=== PATIENT | female | born 1995 | race Caucasian/White ===

== ENCOUNTER 2018-02-04 09:14 | Emergency (ER) | payer OTHER | END 2018-02-04 09:47 | disposition home or self-care (01) | LOC: M ED 09:14 | DX: O99.513 Diseases of the respiratory system complicating pregnancy, third trimester (principal); J20.9 Acute bronchitis, unspecified; J32.9 Chronic sinusitis, unspecified; O99.413 Diseases of the circulatory system complicating pregnancy, third trimester; R01.1 Cardiac murmur, unspecified; Z88.7 Allergy status to serum and vaccine; Z3A.32 32 weeks gestation of pregnancy | CPT/HCPCS: 99282 ==

== ENCOUNTER 2018-02-24 19:36 | Outpatient (CLI) | payer OTHER | END 2018-02-24 21:15 | disposition home or self-care (01) | LOC: M LDO 19:36 | DX: O26.893 Other specified pregnancy related conditions, third trimester (principal); Z3A.35 35 weeks gestation of pregnancy; R51 Headache | CPT/HCPCS: 59025 ==

== ENCOUNTER 2018-02-26 13:58 | Outpatient (CLI) | payer OTHER ==
[2018-02-26 14:42] LABS: HEMATOCRIT 35.6 % (36.0-47.0); MEAN CORPUSCULAR HEMOGLOBIN 29.4 pg (27.0-33.0); MEAN CORPUSCULAR HGB CONC 33.7 g/dl (32.0-36.5); MEAN CORPUSCULAR VOLUME 87.3 fl (80.0-96.0); PLATELET COUNT, AUTOMATED 248 10^3/uL (150-450); RED BLOOD COUNT 4.08 10^6/uL (4.00-5.40); RED CELL DISTRIBUTION WIDTH 13.6 % (11.5-14.5); WHITE BLOOD COUNT 13.6 10^3/uL (4.0-10.0)
[2018-02-26 15:09] LABS: ALT/SGPT 16 U/L (12-78); AST/SGOT 14 U/L (7-37); BILIRUBIN,TOTAL 0.2 MG/DL (0.2-1.0); CREATININE FOR GFR 0.66 MG/DL (0.55-1.30); GLOMERULAR FILTRATION RATE > 60.0 (>60); LDH LACTATE DEHYDROGENASE 137 U/L (84-246); URIC ACID 4.8 MG/DL (2.6-6.0)
[2018-02-26 15:10] LABS: TOTAL PROTEIN,RANDOM URINE 10.6 MG/DL (0.0-12.0)
[2018-02-26 15:10] LABS: CREATININE,RANDOM URINE 46.4 MG/DL
== END 2018-02-26 16:41 | disposition home or self-care (01) ==
LOC: M LDO 13:58
DX: O13.3 Gestational [pregnancy-induced] hypertension without significant proteinuria, third trimester (principal); Z3A.35 35 weeks gestation of pregnancy
CPT/HCPCS: 59025

== ENCOUNTER 2018-02-28 15:53 | Outpatient (CLI) | payer OTHER ==
[2018-02-28 16:48] LABS: HEMATOCRIT 36.7 % (36.0-47.0); HEMOGLOBIN 12.3 g/dl (12.0-15.5); MEAN CORPUSCULAR HEMOGLOBIN 29.7 pg (27.0-33.0); MEAN CORPUSCULAR HGB CONC 33.5 g/dl (32.0-36.5); MEAN CORPUSCULAR VOLUME 88.6 fl (80.0-96.0); PLATELET COUNT, AUTOMATED 241 10^3/uL (150-450); RED BLOOD COUNT 4.14 10^6/uL (4.00-5.40); RED CELL DISTRIBUTION WIDTH 13.6 % (11.5-14.5); WHITE BLOOD COUNT 13.5 10^3/uL (4.0-10.0)
[2018-02-28 17:14] LABS: ALT/SGPT 15 U/L (12-78); AST/SGOT 18 U/L (7-37); BILIRUBIN,TOTAL 0.2 MG/DL (0.2-1.0); CREATININE FOR GFR 0.89 MG/DL (0.55-1.30); GLOMERULAR FILTRATION RATE > 60.0 (>60); LDH LACTATE DEHYDROGENASE 167 U/L (84-246); URIC ACID 5.2 MG/DL (2.6-6.0)
[2018-02-28 17:27] LABS: CREATININE,RANDOM URINE 21.1 MG/DL
[2018-02-28 17:27] LABS: TOTAL PROTEIN,RANDOM URINE 9.2 MG/DL (0.0-12.0)
== END 2018-02-28 18:10 | disposition home or self-care (01) ==
LOC: M LDO 15:53
DX: O13.3 Gestational [pregnancy-induced] hypertension without significant proteinuria, third trimester (principal); Z3A.35 35 weeks gestation of pregnancy; O36.8130 Decreased fetal movements, third trimester, not applicable or unspecified
CPT/HCPCS: 76815

== ENCOUNTER → 2018-03-01 | Outpatient (REF) | payer OTHER ==
[2018-03-01 20:56] LABS: URINE TOTAL PROTEIN 11.7 MG/DL (0-12)
[2018-03-01 21:02] LABS: TOTAL PROTEIN 24 HOUR URINE 239.8 MG/24HR (50-150); TOTAL VOLUME, URINE 2050 ML
== END ==
LOC: M LAB REF 19:57
DX: Z34.82 Encounter for supervision of other normal pregnancy, second trimester (principal)

== ENCOUNTER 2018-03-08 14:25 | Inpatient (IN) | payer OTHER ==
[2018-03-08 15:39] LABS: HEMATOCRIT 35.9 % (36.0-47.0); HEMOGLOBIN 11.8 g/dl (12.0-15.5); MEAN CORPUSCULAR HEMOGLOBIN 29.3 pg (27.0-33.0); MEAN CORPUSCULAR HGB CONC 32.9 g/dl (32.0-36.5); MEAN CORPUSCULAR VOLUME 89.1 fl (80.0-96.0); PLATELET COUNT, AUTOMATED 240 10^3/uL (150-450); RED BLOOD COUNT 4.03 10^6/uL (4.00-5.40); RED CELL DISTRIBUTION WIDTH 13.9 % (11.5-14.5); WHITE BLOOD COUNT 10.4 10^3/uL (4.0-10.0)
[2018-03-08 16:10] LABS: ALT/SGPT 15 U/L (12-78); AST/SGOT 17 U/L (7-37); BILIRUBIN,TOTAL 0.2 MG/DL (0.2-1.0); CREATININE FOR GFR 0.68 MG/DL (0.55-1.30); GLOMERULAR FILTRATION RATE > 60.0 (>60); LDH LACTATE DEHYDROGENASE 174 U/L (84-246)
[2018-03-08] MEDS: miSOPROStol 50 MCG 1/2 TAB (S0191) PO (16:16)
[2018-03-08] MEDS: LR 1,000 ML IV (20:46)
[2018-03-08] MEDS: LACTATED RINGER'S 1000 ML IV (23:06)
[2018-03-08] MEDS ORDERED: FENTANYL 2MCG/ML ROPIVACAINE 0.2% IN 0.9% NACL 200ML IVBAG As Ordered (23:44)
[2018-03-09] MEDS ORDERED: ONDANSETRON 4MG/2ML VIAL (J2405) IV ×2 (01:00→22:00)
[2018-03-09] MEDS ORDERED: FENTANYL/ROPIVACAINE/NACL BAG 200 ML EPIDURAL (01:00)
[2018-03-09] MEDS ORDERED: diphenhydrAMINE INJ 50MG/ML VIAL (J1200) IV (01:00)
[2018-03-09] MEDS ORDERED: EPIDURAL/PCA KEYS XX (01:00)
[2018-03-09] MEDS ORDERED: REFRIGERATOR IV KEYS XX (01:00)
[2018-03-09] MEDS ORDERED: LACTATED RINGER'S 1000 ML IV (01:00)
[2018-03-09] MEDS ORDERED: NALOXONE INJ 0.4 MG/1 ML VIAL (J2310) IV (01:00)
[2018-03-09] MEDS ORDERED: EPIDURAL COMMENT XX (01:00)
[2018-03-09] MEDS: ePHEDrine SULFATE 25 MG/5 ML(5MG/ML) SYRINGE IV ×4 (02:13→12:51)
[2018-03-09 07:33] LABS: ALT/SGPT 11 U/L (12-78); AST/SGOT 13 U/L (7-37); BILIRUBIN,TOTAL 0.2 MG/DL (0.2-1.0); CREATININE FOR GFR 0.68 MG/DL (0.55-1.30); GLOMERULAR FILTRATION RATE > 60.0 (>60); LDH LACTATE DEHYDROGENASE 134 U/L (84-246); URIC ACID 4.9 MG/DL (2.6-6.0)
[2018-03-09] MEDS: OXYTOCIN DRIP 30 UNITS in APPROPRIATE DILUENT 1 EA IV ×3 (08:43→21:35)
[2018-03-09] MEDS: LR 1,000 ML IV ×2 (08:44→16:00)
[2018-03-09] MEDS: BICITRA 30ML SOLN UDC PO (20:10)
[2018-03-09] MEDS ORDERED: OXYTOCIN INJ 10 UNITS/ML VIAL (J2590) As Ordered ×3 (20:21)
[2018-03-09] MEDS ORDERED: fentaNYL 100 MCG/2 ML INJECTION (J3010) As Ordered ×3 (20:34→21:07)
[2018-03-09] MEDS ORDERED: LIDOCAINE PRES-FREE 2% 10ML AMP As Ordered ×2 (20:34→20:52)
[2018-03-09] MEDS ORDERED: ONDANSETRON 4MG/2ML VIAL (J2405) As Ordered (20:34)
[2018-03-09] MEDS ORDERED: MORPHINE PRES-FREE INJ 10 MG/10 ML VIAL (J2274) As Ordered (20:44)
[2018-03-09] MEDS ORDERED: KETOROLAC 60 MG/2 ML VIAL (J1885) As Ordered (21:28)
[2018-03-09] MEDS: DOCUSATE SODIUM 100 MG CAP PO (21:40)
[2018-03-09] MEDS ORDERED: RHOGAM 300 MCG (1500 IU) INJ (J2790) IM (21:45)
[2018-03-09] MEDS ORDERED: MEASLES,MUMPS,RUBELLA VACCINE INJ (MMR-II) (90707) SC (21:45)
[2018-03-09] MEDS ORDERED: METOCLOPRAMIDE INJ 10MG/2ML VIAL (J2765) IV (21:45)
[2018-03-09] MEDS ORDERED: PERCOCET 5MG/325MG TAB PO (22:00)
[2018-03-09] MEDS ORDERED: NALBUPHINE HCL 10 MG/ML AMP (J2300) IV (22:00)
[2018-03-09] MEDS ORDERED: fentaNYL 100 MCG/2 ML INJECTION (J3010) IV (22:00)
[2018-03-10] MEDS: PERCOCET 5MG/325MG TAB PO ×5 (00:04→23:33)
[2018-03-10] MEDS: KETOROLAC 30 MG/ML VIAL (J1885) IV ×3 (04:48→15:44)
[2018-03-10 06:48] LABS: HEMATOCRIT 28.8 % (36.0-47.0); HEMOGLOBIN 9.6 g/dl (12.0-15.5); MEAN CORPUSCULAR HEMOGLOBIN 29.4 pg (27.0-33.0); MEAN CORPUSCULAR HGB CONC 33.3 g/dl (32.0-36.5); MEAN CORPUSCULAR VOLUME 88.3 fl (80.0-96.0); PLATELET COUNT, AUTOMATED 170 10^3/uL (150-450); RED BLOOD COUNT 3.26 10^6/uL (4.00-5.40); RED CELL DISTRIBUTION WIDTH 13.6 % (11.5-14.5); WHITE BLOOD COUNT 15.7 10^3/uL (4.0-10.0)
[2018-03-10] MEDS ORDERED: ADACEL/BOOSTRIX VACCINE (DIPHTH/PERTUSS/ACELL/TETANUS)0.5ML SYR (90715) IM (09:00)
[2018-03-10] MEDS: PRENATAL VITAMINS CHEWABLE TABLET PO (09:21)
[2018-03-10] MEDS: DOCUSATE SODIUM 100 MG CAP PO ×2 (09:21→19:47)
[2018-03-10 19:44] LABS: HEMOGLOBIN 9.6 g/dl (12.0-15.5); MEAN CORPUSCULAR HGB CONC 33.1 g/dl (32.0-36.5); MEAN CORPUSCULAR VOLUME 90.6 fl (80.0-96.0); PLATELET COUNT, AUTOMATED 174 10^3/uL (150-450); RED CELL DISTRIBUTION WIDTH 13.9 % (11.5-14.5); WHITE BLOOD COUNT 13.8 10^3/uL (4.0-10.0)
[2018-03-10] MEDS: IBUPROFEN 800 MG TAB PO (23:32)
[2018-03-11] MEDS: PERCOCET 5MG/325MG TAB PO ×3 (03:45→13:15)
[2018-03-11] MEDS: IBUPROFEN 800 MG TAB PO ×2 (07:48→15:50)
[2018-03-11] MEDS: DOCUSATE SODIUM 100 MG CAP PO (07:48)
[2018-03-11] MEDS: PRENATAL VITAMINS CHEWABLE TABLET PO (07:49)
[2018-03-11] MEDS: ADACEL/BOOSTRIX VACCINE (DIPHTH/PERTUSS/ACELL/TETANUS)0.5ML SYR (90715) IM (09:09)
== END 2018-03-11 16:00 | disposition home or self-care (01) | DRG 766 ==
LOC: M LDI 14:25 → M OBS 03-09 22:00
PROC: 10D00Z1 Extraction of Products of Conception, Low, Open Approach (ICD-10-PCS; principal; 2018-03-09 20:21)
PROC: 3E0DXGC Introduction of Other Therapeutic Substance into Mouth and Pharynx, External Approach (ICD-10-PCS; 2018-03-09 20:21)
PROC: 3E033VJ Introduction of Other Hormone into Peripheral Vein, Percutaneous Approach (ICD-10-PCS; 2018-03-09 20:21)
PROC: 10907ZC Drainage of Amniotic Fluid, Therapeutic from Products of Conception, Via Natural or Artificial Opening (ICD-10-PCS; 2018-03-09 20:21)
DX: O13.3 Gestational [pregnancy-induced] hypertension without significant proteinuria, third trimester (principal); Z37.0 Single live birth; Z3A.37 37 weeks gestation of pregnancy; O61.0 Failed medical induction of labor

== ENCOUNTER → 2019-03-17 | Outpatient (CLI) | payer OTHER ==
[~2019-03-17] MED LIST: ACET500T15 PO; COLA100C5 PO; IBUP-1114 PO; MAPA500T2 PO; OXYC1TAB23 PO; PREN1TAB26 PO; ZITHTAB PO
[2019-03-17 14:59] LABS: BASO # 0.1 10^3/uL (0.0-0.2); BASO % 0.4 % (0.0-1.0); EOS # 0.2 10^3/uL (0.0-0.5); EOS % 1.3 % (0.0-3.0); HEMATOCRIT 39.7 % (36.0-47.0); HEMOGLOBIN 13.2 g/dl (12.0-15.5); LYMPH # 2.4 10^3/uL (1.5-5.0); LYMPH % 19.2 % (24.0-44.0); MEAN CORPUSCULAR HEMOGLOBIN 29.8 pg (27.0-33.0); MEAN CORPUSCULAR HGB CONC 33.2 g/dl (32.0-36.5); MEAN CORPUSCULAR VOLUME 89.6 fl (80.0-96.0); MONO # 0.8 10^3/uL (0.0-0.8); NEUTROPHILS # 9.2 10^3/uL (1.5-8.5); NEUTROPHILS % 72.8 % (36.0-66.0); PLATELET COUNT, AUTOMATED 328 10^3/uL (150-450); RED BLOOD COUNT 4.43 10^6/uL (4.00-5.40); WHITE BLOOD COUNT 12.6 10^3/uL (4.0-10.0)
[2019-03-17 15:31] LABS: ALT/SGPT 16 U/L (12-78); BILIRUBIN,TOTAL 0.4 MG/DL (0.2-1.0); CREATININE FOR GFR 0.64 MG/DL (0.55-1.30); GLOMERULAR FILTRATION RATE > 60.0 (>60); LDH LACTATE DEHYDROGENASE 137 U/L (84-246)
[2019-03-17 16:47] LABS: CHLAMYDIA DNA AMPLIFICATION NEGATIVE (NEGATIVE); GC DNA AMPLIFICATION NEGATIVE (NEGATIVE)
[2019-03-18 09:50] LABS: RUBELLA IgG QUALITATIVE IMMUNE (IMMUNE)
[2019-03-18 10:18] LABS: HEPATITIS C VIRUS ABY INDEX 0.1 INDEX (<0.8)
[2019-03-18 10:19] LABS: HIV 1&2 SCREEN CENTAUR NEGATIVE (NEGATIVE)
== END ==
LOC: M LAB 13:19
PROVIDERS: ATTEND Advanced Practice Midwife
DX: O09.293 Supervision of pregnancy with other poor reproductive or obstetric history, third trimester (principal); Z3A.00 Weeks of gestation of pregnancy not specified

== ENCOUNTER → 2019-04-02 | Outpatient (CLI) | payer OTHER ==
[2019-04-04 00:09] LABS: ANTI PARVO VIRUS LEVEL IGG 4.1 index (0.0-0.8); ANTI PARVO VIRUS LEVEL IgM 0.2 index (0.0-0.8)
== END ==
LOC: M LAB 10:25
PROVIDERS: ATTEND Advanced Practice Midwife
DX: O34.219 Maternal care for unspecified type scar from previous cesarean delivery (principal); Z3A.00 Weeks of gestation of pregnancy not specified

== ENCOUNTER → 2019-05-18 | Outpatient (CLI) | payer OTHER ==
--- NOTE | 2019-05-18 14:19 | REP ---
Clinical: Anatomical evaluation. Comparison: None . Findings: Examination demonstrates a single live intrauterine in cephalic presentation. motion is identified by technologist. Placenta is noted anterior and grade zero without evidence for placenta previa or abruption. Amniotic fluid volume is normal. Cervix measures 3.7 cm in length and appears closed. No evidence for nuchal cord. Gestational age by LMP 18 weeks 4 days with ALMA 10/15/2019 . Gestational age by current measurements 18 weeks 6 days with ALMA 10/13/2019 . FHR equals 142 beats per minute. BPD 4.4 cm 19 weeks 2 days HC 16.0 cm 18 weeks 6 days AC 13.1 cm 18 weeks 4 days FL 2.8 cm 18 weeks 4 days HL 2.8 cm 10 weeks 6 days HC/AC ratio 1.22 Estimated weight 248 grams ( 47th percentile). Anatomical assessment demonstrates normal structures including cranium, choroid plexus, cavum, cerebellum/posterior fossa, lungs, four-chamber heart, diaphragm, stomach, cord insertion/three-vessel cord, kidneys/bladder, spine, and extremities. Impression: 1. Single live intrauterine in cephalic presentation demonstrating appropriate interval growth. 2. Limited evaluation of the facial features and cardiac ventricular outflow tracts noted. Remainder of the anatomical assessment is complete and normal. Electronically Signed by Rupesh Patel MD 05/18/2019 02:10 P
== END ==
LOC: M RAD 13:24
PROVIDERS: ATTEND Advanced Practice Midwife
DX: Z34.92 Encounter for supervision of normal pregnancy, unspecified, second trimester (principal); Z3A.18 18 weeks gestation of pregnancy

== ENCOUNTER → 2019-06-25 | Outpatient (CLI) | payer OTHER ==
--- NOTE | 2019-06-26 04:12 | REP ---
Clinical: Anatomical evaluation. Comparison: 05/18/2019 . Findings: Examination demonstrates a single live intrauterine in cephalic presentation. motion is identified by technologist. Placenta is noted anterior and grade I without evidence for placenta previa or abruption. Amniotic fluid volume is normal. Cervix measures 3.8 cm in length and appears closed. Nuchal cord cannot be excluded Gestational age by LMP 24 weeks 0 days with ALMA see 10/15/2019 . Gestational age by current measurements 25 weeks 0 days with ALMA 10/08/2019 . FHR equals 139 beats per minute. Estimated weight 757 grams ( 74th percentile). Anatomical assessment demonstrates normal structures including cranium, choroid plexus, cavum, cerebellum/posterior fossa, facial features, lungs, four-chamber heart/ventricular outflow tracts, diaphragm, stomach, cord insertion/three-vessel cord, kidneys/bladder, and extremities. Impression: Single live intrauterine in cephalic presentation demonstrating appropriate interval growth. 2. Nuchal cord cannot be excluded. 3. In conjunction with prior examination anatomical assessment is complete and normal. Electronically Signed by Rupesh Patel MD 06/26/2019 04:03 A
== END ==
LOC: M RAD 10:56
PROVIDERS: ATTEND Advanced Practice Midwife
DX: Z34.92 Encounter for supervision of normal pregnancy, unspecified, second trimester (principal)

== ENCOUNTER → 2019-06-26 | Outpatient (CLI) | payer OTHER ==
[2019-06-26 15:00] LABS: HEMATOCRIT 37.3 % (36.0-47.0); HEMOGLOBIN 12.1 g/dl (12.0-15.5); MEAN CORPUSCULAR HEMOGLOBIN 28.9 pg (27.0-33.0); MEAN CORPUSCULAR HGB CONC 32.4 g/dl (32.0-36.5); PLATELET COUNT, AUTOMATED 285 10^3/uL (150-450); RED BLOOD COUNT 4.19 10^6/uL (4.00-5.40); WHITE BLOOD COUNT 14.2 10^3/uL (4.0-10.0)
== END ==
LOC: M LAB 12:49
PROVIDERS: ATTEND Advanced Practice Midwife
DX: Z34.92 Encounter for supervision of normal pregnancy, unspecified, second trimester (principal); Z3A.00 Weeks of gestation of pregnancy not specified

== ENCOUNTER 2019-08-02 20:07 | Outpatient (CLI) | payer OTHER ==
[~2019-08-02] VITALS: Ht 160 cm; Wt 90.4 kg
[2019-08-02 20:31] VITALS: BP 137/75
[2019-08-02 23:22] LABS: CHLAMYDIA DNA AMPLIFICATION NEGATIVE (NEGATIVE); GC DNA AMPLIFICATION NEGATIVE (NEGATIVE)
== END 2019-08-02 21:40 | disposition home or self-care (01) ==
LOC: M LDO 20:07
PROVIDERS: ATTEND Obstetrics & Gynecology
DX: O26.893 Other specified pregnancy related conditions, third trimester (principal); N89.8 Other specified noninflammatory disorders of vagina; Z3A.29 29 weeks gestation of pregnancy
CPT/HCPCS: 59025; 87491; 87591; G0463

== ENCOUNTER 2019-08-11 16:43 | Emergency (ER) | payer OTHER ==
[2019-08-11 17:02] VITALS: BP 139/91
== END 2019-08-11 18:24 | disposition home or self-care (01) ==
LOC: M ED 16:43
DX: O99.513 Diseases of the respiratory system complicating pregnancy, third trimester (principal); J06.9 Acute upper respiratory infection, unspecified; Z3A.31 31 weeks gestation of pregnancy; Z88.7 Allergy status to serum and vaccine; Z91.018 Allergy to other foods
CPT/HCPCS: 87486; 87581; 87633; 87798; 99283; U0002

== ENCOUNTER → 2019-09-18 | Outpatient (REF) | payer OTHER | LOC: M SFHCWAGY 16:32 | PROVIDERS: ATTEND Obstetrics & Gynecology | DX: Z3A.36 36 weeks gestation of pregnancy (principal) ==

== ENCOUNTER 2020-03-08 09:10 | Emergency (ER) | payer OTHER ==
[~2020-03-08] VITALS: Ht 160 cm; Wt 85.8 kg
[~2020-03-08 09:10] MED LIST changes: +ASPI81TA86 PO; +IBUP-1022 PO
[2020-03-08 10:12] LABS: BASO % 0.3 % (0.0-1.0); EOS # 0.1 10^3/uL (0.0-0.5); EOS % 0.8 % (0.0-3.0); HEMATOCRIT 41.6 % (36.0-47.0); HEMOGLOBIN 13.2 g/dl (12.0-15.5); LYMPH % 15.4 % (24.0-44.0); MEAN CORPUSCULAR HGB CONC 31.7 g/dl (32.0-36.5); MEAN CORPUSCULAR VOLUME 85.1 fl (80.0-96.0); MONO # 0.7 10^3/uL (0.0-0.8); MONO % 5.2 % (0.0-5.0); NEUTROPHILS # 10.2 10^3/uL (1.5-8.5); PLATELET COUNT, AUTOMATED 325 10^3/uL (150-450); RED BLOOD COUNT 4.89 10^6/uL (4.00-5.40)
[2020-03-08 10:58] LABS: ALBUMIN 3.4 GM/DL (3.2-5.2); ALT/SGPT 17 U/L (12-78); BILIRUBIN,DIRECT < 0.1 MG/DL (0.0-0.2); BILIRUBIN,TOTAL 0.2 MG/DL (0.2-1.0); BLOOD UREA NITROGEN 9 MG/DL (7-18); CALCIUM LEVEL 9.1 MG/DL (8.5-10.1); CARBON DIOXIDE LEVEL 23 MEQ/L (21-32); CHLORIDE LEVEL 106 MEQ/L (98-107); CREATININE FOR GFR 0.66 MG/DL (0.55-1.30); GLOMERULAR FILTRATION RATE > 60.0 (>60); GLUCOSE, FASTING 77 MG/DL (70-100); HCG, SERUM QUANTITATIVE 58014 MIU/ML; LIPASE 112 U/L (73-393); POTASSIUM SERUM 4.9 MEQ/L (3.5-5.1); SODIUM LEVEL 136 MEQ/L (136-145); TOTAL PROTEIN 7.7 GM/DL (6.4-8.2)
--- NOTE | 2020-03-08 11:26 | REPVR ---
PROCEDURE INFORMATION: Exam: US First Trimester, Transabdominal and US , Transvaginal US Duplex Artery or Vein of the Abdominal and/or Reproductive Organs, Limited Ovaries Exam date and time: 03/08/2020 10:55 AM Age: 25 years old Clinical indication: complicated by abdominal or pelvic pain; Left lower quadrant; First trimester; Gestational age or lmp: 9; ; Prior surgery; Surgery date: 1-6 months; Surgery type: Uterine rupture repair; Additional info: Llq pain, 9 weeks preg TECHNIQUE: Imaging protocol: Real-time transabdominal obstetrical ultrasound of the maternal pelvis and a first trimester , less than 14 weeks 0 days, with image documentation. Transvaginal imaging was used for better evaluation of the fetus, adnexa, and/or cervix. Real-time duplex ultrasound scan of the arterial or venous flow with neil scale, color Doppler flow and spectral waveform analysis with image documentation. Limited duplex exam focused on the ovaries. Duplex images required to evaluate for torsion and other vascular conditions. COMPARISON: No relevant prior studies available. FINDINGS: Gestation: Single intrauterine gestational sac. Small yolk sac present. Embryonic/ heart rate: 169 bpm. Placenta: No demonstrated subchorionic hemorrhage. BIOMETRY: Gestational age (AUA): Mean crown-rump length 2.3 cm, corresponding to an estimated gestational age of 9 weeks 0 days. MATERNAL: Uterus: The uterus measures 13.0 cm in length transabdominally. Cervix: Cervix not well visualized transabdominally or transvaginally. Right adnexa: The right ovary measures 6.6 x 6.6 x 5.5 cm. It contains 2 simple cysts, measuring 2.4 x 3.8 x 2.3 cm and 3.6 x 4.8 x 5.3 cm. There is internal arterial and venous flow to the ovary. Peak systolic velocity 16.9 cm/s, end-diastolic velocity 8.1 cm/s, resistive index 0.52. Left adnexa: The left ovary measures 2.8 x 3.0 x 1.5 cm transabdominally and appears unremarkable. There is internal flow. Intraperitoneal space: No intraperitoneal free fluid. IMPRESSION: 1. Single viable intrauterine gestation with estimated gestational age of 9 weeks 0 days. 2. Two simple right renal cysts, larger measuring 5.3 cm. Follow-up ultrasound in 2-6 months is recommended. (Reference: Jimmy, 2019) 3. Normal internal flow to the right ovary without torsion. 4. Unremarkable left ovary. REFERENCES: Jimmy Hernandez, et al. Simple Adnexal Cysts: SRU Consensus Conference Update on Follow-up and Reporting. Radiology. 2019;293(2):[id number]. Electronically signed by: Turner Conteh On 03/08/2020 11:26:19 AM
[2020-03-08 12:36] VITALS: BP 143/82
--- NOTE | 2020-03-08 14:35 | ED PDOC ---
Post-Departure Follow-Up ob us faxed to dr valdez for fu He Aquino MD Mar 08, 2020 14:35
== END 2020-03-08 13:01 | disposition home or self-care (01) ==
LOC: M ED 09:10
DX: O26.899 Other specified pregnancy related conditions, unspecified trimester (principal); R10.32 Left lower quadrant pain; M54.5 Low back pain; O26.831 Pregnancy related renal disease, first trimester; O99.341 Other mental disorders complicating pregnancy, first trimester; Z3A.09 9 weeks gestation of pregnancy; Z88.7 Allergy status to serum and vaccine; Z91.018 Allergy to other foods; Z79.899 Other long term (current) drug therapy

== ENCOUNTER → 2020-03-30 | Outpatient (CLI) | payer OTHER ==
[2020-03-30 16:12] LABS: BASO % 0.3 % (0.0-1.0); EOS # 0.1 10^3/uL (0.0-0.5); HEMATOCRIT 40.9 % (36.0-47.0); LYMPH # 2.4 10^3/uL (1.5-5.0); MEAN CORPUSCULAR HEMOGLOBIN 27.5 pg (27.0-33.0); MEAN CORPUSCULAR HGB CONC 31.8 g/dl (32.0-36.5); MEAN CORPUSCULAR VOLUME 86.7 fl (80.0-96.0); MONO # 0.7 10^3/uL (0.0-0.8); MONO % 6.6 % (0.0-5.0); NEUTROPHILS # 7.7 10^3/uL (1.5-8.5); NEUTROPHILS % 69.7 % (36.0-66.0); PLATELET COUNT, AUTOMATED 324 10^3/uL (150-450); RED BLOOD COUNT 4.72 10^6/uL (4.00-5.40); WHITE BLOOD COUNT 11.1 10^3/uL (4.0-10.0)
[2020-03-31 10:33] LABS: HEPATITIS C VIRUS ABY INDEX 0.1 INDEX (<0.8); HIV 1&2 SCREEN CENTAUR NEGATIVE (NEGATIVE)
== END ==
LOC: M PLALAB 11:55
PROVIDERS: ATTEND Specialist
DX: Z34.81 Encounter for supervision of other normal pregnancy, first trimester (principal)

== ENCOUNTER → 2020-04-01 | Outpatient (CLI) | payer OTHER ==
[2020-04-01 10:52] LABS: BASO % 0.4 % (0.0-1.0); EOS # 0.1 10^3/uL (0.0-0.5); HEMATOCRIT 38.5 % (36.0-47.0); HEMOGLOBIN 11.9 g/dl (12.0-15.5); LYMPH # 2.1 10^3/uL (1.5-5.0); LYMPH % 20.3 % (24.0-44.0); MEAN CORPUSCULAR HEMOGLOBIN 26.7 pg (27.0-33.0); MEAN CORPUSCULAR HGB CONC 30.9 g/dl (32.0-36.5); MEAN CORPUSCULAR VOLUME 86.3 fl (80.0-96.0); MONO # 0.6 10^3/uL (0.0-0.8); MONO % 6.3 % (0.0-5.0); NEUTROPHILS # 7.2 10^3/uL (1.5-8.5); NEUTROPHILS % 71.5 % (36.0-66.0); PLATELET COUNT, AUTOMATED 313 10^3/uL (150-450); RED BLOOD COUNT 4.46 10^6/uL (4.00-5.40); WHITE BLOOD COUNT 10.1 10^3/uL (4.0-10.0)
[2020-04-01 11:16] LABS: ALBUMIN 3.1 GM/DL (3.2-5.2); ALT/SGPT 13 U/L (12-78); BILIRUBIN,TOTAL 0.3 MG/DL (0.2-1.0); BLOOD UREA NITROGEN 8 MG/DL (7-18); CALCIUM LEVEL 8.9 MG/DL (8.5-10.1); CARBON DIOXIDE LEVEL 23 MEQ/L (21-32); CHLORIDE LEVEL 106 MEQ/L (98-107); CREATININE FOR GFR 0.63 MG/DL (0.55-1.30); FERRITIN 23 NG/ML (8-252); GLOMERULAR FILTRATION RATE > 60.0 (>60); GLUCOSE, FASTING 69 MG/DL (70-100); IRON (FE) 62 UG/DL (50-170); PERCENT SATURATION 14.9 % (13.2-45.0); POTASSIUM SERUM 4.2 MEQ/L (3.5-5.1); SODIUM LEVEL 136 MEQ/L (136-145); TOTAL IRON BINDING CAPACITY 417 UG/DL (250-450); TOTAL PROTEIN 7.1 GM/DL (6.4-8.2)
[2020-04-01 11:25] LABS: TOTAL 25(OH) VITAMIN D 18.1 NG/ML (30.0-100.0)
== END ==
LOC: M PLALAB 08:09
PROVIDERS: ATTEND Physician Assistant
DX: D64.9 Anemia, unspecified (principal)

== ENCOUNTER → 2020-06-13 | Outpatient (CLI) | payer OTHER ==
--- NOTE | 2020-06-14 10:10 | REP ---
INDICATION: Follow up Anatomy COMPARISON: None. TECHNIQUE: Transabdominal obstetrical ultrasound with color Doppler evaluation. FINDINGS: Examination demonstrates a single live intrauterine in cephalic presentation. motion is identified by technologist. Placenta is noted posterior and grade 1 without evidence for placenta previa or abruption. Amniotic fluid volume is normal. Cervix measures 3.2 cm in length and appears closed.. Gestational age by LMP 23 weeks 4 days with ALMA 10/06/2020. Gestational age by current measurements 23 weeks 2 days with ALMA 10/08/2020. FHR equals 144 beats per minute. RON: 15.8 cm. Estimated weight 613 grams (43rdpercentile). Anatomical assessment demonstrates 5 mm right choroid plexus cyst and normal appearance to the cerebral ventricles, nose/lips, and spine. IMPRESSION: 1. Single live intrauterine in cephalic presentation demonstrating appropriate interval growth. 2. Small right choroid plexus cyst. 3. In conjunction with prior examination, remainder of the anatomical assessment is complete and normal. <Electronically signed by Rupesh Patel > 06/14/20 1001
== END ==
LOC: M WHC 10:12
PROVIDERS: ATTEND Obstetrics & Gynecology
DX: O34.211 Maternal care for low transverse scar from previous cesarean delivery (principal)

== ENCOUNTER → 2020-07-01 | Outpatient (REF) | payer OTHER ==
[2020-07-01 13:33] LABS: HEMATOCRIT 39.2 % (36.0-47.0); MEAN CORPUSCULAR HEMOGLOBIN 28.1 pg (27.0-33.0); MEAN CORPUSCULAR HGB CONC 30.6 g/dl (32.0-36.5); MEAN CORPUSCULAR VOLUME 91.8 fl (80.0-96.0); PLATELET COUNT, AUTOMATED 254 10^3/uL (150-450); RED BLOOD COUNT 4.27 10^6/uL (4.00-5.40); WHITE BLOOD COUNT 11.2 10^3/uL (4.0-10.0)
== END ==
LOC: M PLALAB 08:36
PROVIDERS: ATTEND Advanced Practice Midwife
DX: O34.211 Maternal care for low transverse scar from previous cesarean delivery (principal)

== ENCOUNTER 2020-09-06 10:29 | Outpatient (CLI) | payer OTHER ==
[~2020-09-06] VITALS: Ht 160 cm; Wt 90.9 kg
[2020-09-06 11:00] VITALS: BP 134/72
[2020-09-06] MEDS ORDERED: LACTATED RINGER'S 1000 ML IV STA (11:01)
[2020-09-06] MEDS ORDERED: LR 1,000 ML IV SCH (11:05)
[2020-09-06 11:45] LABS: BASO % 0.3 % (0.0-1.0); EOS # 0.1 10^3/uL (0.0-0.5); EOS % 0.6 % (0.0-3.0); HEMATOCRIT 38.4 % (36.0-47.0); HEMOGLOBIN 12.5 g/dl (12.0-15.5); LYMPH # 0.9 10^3/uL (1.5-5.0); LYMPH % 8.7 % (24.0-44.0); MEAN CORPUSCULAR HEMOGLOBIN 29.2 pg (27.0-33.0); MEAN CORPUSCULAR HGB CONC 32.6 g/dl (32.0-36.5); MEAN CORPUSCULAR VOLUME 89.7 fl (80.0-96.0); MONO # 0.8 10^3/uL (0.0-0.8); MONO % 6.9 % (2.0-8.0); NEUTROPHILS % 82.9 % (36.0-66.0); PLATELET COUNT, AUTOMATED 232 10^3/uL (150-450); RED BLOOD COUNT 4.28 10^6/uL (4.00-5.40); WHITE BLOOD COUNT 10.9 10^3/uL (4.0-10.0)
[2020-09-06 12:16] LABS: ALBUMIN 2.9 GM/DL (3.2-5.2); ALT/SGPT 10 U/L (12-78); BILIRUBIN,TOTAL 0.5 MG/DL (0.2-1.0); BLOOD UREA NITROGEN 7 MG/DL (7-18); CALCIUM LEVEL 9.2 MG/DL (8.5-10.1); CARBON DIOXIDE LEVEL 22 MEQ/L (21-32); CHLORIDE LEVEL 106 MEQ/L (98-107); CREATININE FOR GFR 0.51 MG/DL (0.55-1.30); GLOMERULAR FILTRATION RATE > 60.0 (>60); GLUCOSE, FASTING 89 MG/DL (70-100); SODIUM LEVEL 136 MEQ/L (136-145); TOTAL PROTEIN 6.8 GM/DL (6.4-8.2)
[2020-09-06 12:29] VITALS: BP 106/62
--- NOTE | 2020-09-06 12:31 | IPNPDOC ---
Obstetrical Progress Note Date of Service Sep 06, 2020 Subjective 25 yo at 35 4/7 weeks presents with nausea, vomiting, and diarrhea since yesterday. She started to feel mild contractions today. She has not been able to keep anything down. She has had two prior sections. Her last was complicated by uterine rupture. Assessment Variability: Moderate Accelerations: Positive Decelerations: None Heart Rate Tracing: Category I Tocometer Contractions: Yes Frequency: irregular, greater than 10 min/apart Assessment and Plan Age: 25 : 3 Term: 2 Pre-term: 0 Abortions: 0 Livin Additional Comments 25 yo at 35 4/7 weeks with viral syndrome, not in labor Give IV fluids check metabolic labs Monitor ZOIE BRAY MD Sep 06, 2020 12:30
== END 2020-09-06 13:47 | disposition home or self-care (01) ==
LOC: M LDO 10:29
PROVIDERS: ATTEND Specialist
DX: O98.513 Other viral diseases complicating pregnancy, third trimester (principal); O21.8 Other vomiting complicating pregnancy; Z3A.35 35 weeks gestation of pregnancy; O26.893 Other specified pregnancy related conditions, third trimester; R19.7 Diarrhea, unspecified; O34.211 Maternal care for low transverse scar from previous cesarean delivery
CPT/HCPCS: 59025; 80053; 85025; 96360; 96361; G0378; G0463

== ENCOUNTER → 2020-09-08 | Outpatient (REF) | payer OTHER ==
[~2020-09-08] MED LIST changes: +FERR325T3 PO; +IBUP80TA PO; +PERCOCET PO; +VITAD400CA PO
== END ==
LOC: M SFHCWAGY 14:51
PROVIDERS: ATTEND Specialist
DX: Z34.83 Encounter for supervision of other normal pregnancy, third trimester (principal); Z3A.00 Weeks of gestation of pregnancy not specified
CPT/HCPCS: 87081; G0463

== ENCOUNTER → 2020-09-09 | Outpatient (CLI) | payer OTHER ==
[~2020-09-09] MED LIST changes: -FERR325T3 PO; -IBUP80TA PO; -PERCOCET PO; -VITAD400CA PO
== END ==
LOC: M LABSMTC 09:34
PROVIDERS: ATTEND Anesthesiology
DX: Z01.812 Encounter for preprocedural laboratory examination (principal); Z20.822 Contact with and (suspected) exposure to COVID-19

== ENCOUNTER 2020-09-14 06:05 | Inpatient (IN) | payer OTHER ==
[~2020-09-14] VITALS: Ht 160 cm; Wt 92.1 kg
[2020-09-14] VITALS (8 sets, daily range): BP systolic 98–129; BP diastolic 51–74
[2020-09-14] MEDS ORDERED: FERR325T3 PO (06:14)
[2020-09-14] MEDS ORDERED: VITAD400CA PO (06:16)
[2020-09-14] MEDS ORDERED: BICITRA 30ML SOLN UDC PO ONE (06:20)
[2020-09-14] MEDS ORDERED: ceFAZolin SOD 2 GM in IV 1 EA IV ONE (06:20)
[2020-09-14] MEDS ORDERED: LR 800 ML IV ONE (06:20)
[2020-09-14] MEDS ORDERED: LR 1,000 ML IV SCH ×2 (06:20→09:25)
[2020-09-14 06:51] LABS: HEMATOCRIT 36.8 % (36.0-47.0); MEAN CORPUSCULAR HEMOGLOBIN 29.1 pg (27.0-33.0); MEAN CORPUSCULAR HGB CONC 32.6 g/dl (32.0-36.5); MEAN CORPUSCULAR VOLUME 89.3 fl (80.0-96.0); PLATELET COUNT, AUTOMATED 240 10^3/uL (150-450); RED BLOOD COUNT 4.12 10^6/uL (4.00-5.40); WHITE BLOOD COUNT 10.4 10^3/uL (4.0-10.0)
[2020-09-14] MEDS ORDERED: OXYTOCIN INJ 10 UNITS/ML VIAL (J2590) As Ordered ONE ×2 (07:20→08:47)
[2020-09-14] MEDS ORDERED: dexameTHASONE 4 MG/ML 1ML VIAL (J1100 PER 1MG) As Ordered ONE (07:20)
[2020-09-14] MEDS ORDERED: ONDANSETRON 4MG/2ML VIAL As Ordered ONE ×2 (07:20→09:38)
[2020-09-14] MEDS ORDERED: fentaNYL 100 MCG/2 ML INJECTION (J3010) As Ordered ONE (07:20)
[2020-09-14] MEDS ORDERED: KETOROLAC 60MG 2ML VIAL As Ordered ONE (07:20)
[2020-09-14] MEDS ORDERED: MORPHINE PRES-FREE INJ 10 MG/10 ML VIAL (J2274) As Ordered ONE (07:21)
[2020-09-14] MEDS ORDERED: ONDANSETRON 4MG/2ML VIAL IV PRN ×2 (07:56→09:25)
[2020-09-14] MEDS ORDERED: diphenhydrAMINE 50MG/ML VIAL (J1200) IV PRN (07:56)
[2020-09-14] MEDS ORDERED: NALOXONE INJ 0.4MG/1ML VIAL (J2310 PER 1MG) IV PRN ×2 (07:56)
[2020-09-14] MEDS ORDERED: NALBUPHINE HCL 10 MG/ML AMP (J2300) IV PRN (07:56)
[2020-09-14] MEDS ORDERED: ePHEDrine SULFATE 25 MG/5 ML(5MG/ML) SYRINGE As Ordered ONE (08:10)
[2020-09-14] MEDS ORDERED: OXYTOCIN 30 UNITS IN 0.9% NaCl 500ML IV BAG (J2590) As Ordered ONE (08:34)
[2020-09-14] MEDS ORDERED: SIMETHICONE 80MG CHEW TAB PO PRN (09:10)
[2020-09-14] MEDS ORDERED: RHOGAM 300 MCG (1500 IU) INJ (J2790) IM SCH (09:10)
[2020-09-14] MEDS ORDERED: OXYTOCIN DRIP 30 UNITS in IV 1 EA IV SCH (09:10)
[2020-09-14] MEDS ORDERED: MEASLES,MUMPS,RUBELLA VACCINE INJ (MMR-II) (90707) SC SCH (09:10)
[2020-09-14] MEDS ORDERED: fentaNYL 100 MCG/2 ML INJECTION (J3010) IV PRN (09:25)
--- NOTE | 2020-09-14 09:35 | ROOPDOC ---
[facility] Report Of Operation Report of Operation DATE OF PROCEDURE: 09/14/20 Report of operation Preoperative diagnosis: 37 weeks, prior x 2, h/o uterine rupture prior Postoperative diagnosis: same Procedure: Repeat low transverse section and bilateral tubal ligation. Surgeon: Zoie Bray M.D. Asst.: Lauryn Perez CNM EBL: 600 ml. Urine output: 100 mL's. Findings: 6 lbs. 1 oz. (2760 gram) male infant, 's 9 and 9 g, Thin lower uterine segment, omental adhesions to anterior abdominal wall, normal fallopian tubes and ovaries. Operative summary: Patient taken to the operating room where spinal anesthesia was induced. She was prepped draped in a sterile fashion in the supine position. A Hinojosa catheter was placed. A Pfannenstiel skin incision was made with scalpel. Fascia was incised and extended bilaterally. The peritoneal cavity was entered. A Mobius retractor was placed. A bladder flap was created. A curvilinear incision was made in lower uterine segment until Clear fluid was noted. The incision was extended manually. The infant was delivered from the vertex position without difficulty. Cord was doubly clamped and cut. The was handed to awaiting nurses. . The placenta was expressed. Uterus was closed with O-Vicryl in a running locked fashion. A second imbricating layer of Vicryl was placed. Attention was turned to the fallopian tubes. A Daniel Clamp was used to grasp the fallopian tubes at the midportion.. A window was created in the broad ligament free tie of 2-0 chromic was placed around the segment of tube on either side of the clamp. A Segment of tube was excised bilaterally and sent to pathology. Peritoneum was closed with 2-0 Vicryl a running fashion. Fascia was closed with 0 Vicryl in running fashion. Skin was closed 4-0 Monocryl subcuticular sutures. Sponge, instrument and needle counts were correct. Braeden Perez CNM, assisted with all aspects of the procedure. She helped close each layer of the incision and deliver the fetus. ZOIE BRAY MD Sep 14, 2020 09:35
[2020-09-14] MEDS: LR 1,000 ML IV SCH ×2 (09:54→16:45)
[2020-09-14] MEDS: METOCLOPRAMIDE INJ 10MG/2ML VIAL (J2765 PER 1) IV PRN ×2 (11:23→21:39)
[2020-09-14] MEDS ORDERED: BOOSTRIX/ADACEL VACCINE (DIPHTH/PERTUSS/ACELL/TETANUS) 0.5ML SYR IM ONE (12:10)
[2020-09-14] MEDS: KETOROLAC 30 MG/ML 1ML VIAL IV SCH ×2 (14:51→20:31)
[2020-09-15] MEDS: LR 1,000 ML IV SCH ×3 (01:27→09:10)
[2020-09-15 02:00] VITALS: BP 99/52
[2020-09-15] MEDS: KETOROLAC 30 MG/ML 1ML VIAL IV SCH (02:34)
[2020-09-15 06:00] VITALS: BP 116/62
[2020-09-15] MEDS ORDERED: PERCOCET 5MG/325MG TAB PO PRN (07:55)
[2020-09-15] MEDS: PRENATAL VITAMINS CHEWABLE TABLET PO SCH (08:20)
[2020-09-15] MEDS: PERCOCET 5MG/325MG TAB PO PRN ×3 (08:21→17:20)
[2020-09-15] MEDS ORDERED: INFLUENZA QUADRIVALENT PF VACCINE 0.5ML SYRINGE IM ONE (09:00)
[2020-09-15] MEDS ORDERED: BOOSTRIX/ADACEL VACCINE (DIPHTH/PERTUSS/ACELL/TETANUS) 0.5ML SYR IM ONE (09:00)
[2020-09-15 09:11] LABS: HEMATOCRIT 34.6 % (36.0-47.0); HEMOGLOBIN 11.2 g/dl (12.0-15.5); MEAN CORPUSCULAR HEMOGLOBIN 29.6 pg (27.0-33.0); MEAN CORPUSCULAR HGB CONC 32.4 g/dl (32.0-36.5); MEAN CORPUSCULAR VOLUME 91.3 fl (80.0-96.0); PLATELET COUNT, AUTOMATED 241 10^3/uL (150-450); RED BLOOD COUNT 3.79 10^6/uL (4.00-5.40); WHITE BLOOD COUNT 12.4 10^3/uL (4.0-10.0)
[2020-09-15 10:00] VITALS: BP 122/57
[2020-09-15] MEDS: IBUPROFEN 800 MG TAB PO SCH ×2 (11:00→18:07)
[2020-09-15 14:00] VITALS: BP 105/51
[2020-09-15 18:00] VITALS: BP 118/74
[2020-09-15 22:00] VITALS: BP 114/59
[2020-09-15] MEDS ORDERED: PERCOCET PO ×2 (22:36→22:37)
[2020-09-15] MEDS ORDERED: IBUP80TA PO (22:36)
[2020-09-16 02:00] VITALS: BP 117/67
[2020-09-16] MEDS: IBUPROFEN 800 MG TAB PO SCH ×2 (02:54→10:45)
[2020-09-16] MEDS: PERCOCET 5MG/325MG TAB PO PRN ×2 (05:37→11:48)
[2020-09-16 06:00] VITALS: BP 125/73
--- NOTE | 2020-09-16 06:12 | DS.PDOC ---
Discharge Summary General Date of Admission Sep 14, 2020 at 06:05 Date of Discharge 09/16/2020 Attending Physician: ZOIE BRAY MD Discharge Summary PROCEDURES PERFORMED DURING STAY: 1. section 2. Spinal anesthesia. 3. Tubal ligation ADMITTING DIAGNOSES: 1. History 2 section with uterine rupture. Satisfied parity with undesired fertility DISCHARGE DIAGNOSES: 1. Repeat section with tubal ligation COMPLICATIONS/CHIEF COMPLAINT: History Of Previous Uterine Rupture Satisfied Fert. HISTORY OF PRESENT ILLNESS: This patient is 25-year-old 3 now para 3 who initially presented for a scheduled section. Her history is significant for 2 section with her last remarkable for a uterine rupture. She also expressed satisfied parity with undesired fertility. She underwent uncomplicated section with tubal ligation estimated blood loss is 600ml. Patient did well postoperatively and by postoperative day #2 had met all discharge criteria is as discharged home in stable condition. DISCHARGE MEDICATIONS: Please see below. ALLERGIES: Please see below. PHYSICAL EXAMINATION ON DISCHARGE: VITAL SIGNS: Please see below. GENERAL: Well-appearing no acute distress ABDOMINAL EXAMINATION: Abdomen soft, appropriately tender. Incision was dressed. NEUROLOGICAL EXAMINATION: Grossly intact ACTIVITY: As tolerated. DIET: Regular DISCHARGE PLAN: Home DISCHARGE INSTRUCTIONS: 1. Remove dressing in 5-7 days. 2. Reports severe pain heavy vaginal bleeding fever or incisional issues 3. Follow-up in 2 weeks. DISCHARGE CONDITION: Stable. Vital Signs/I&Os Vital Signs Date Time Temp Pulse Resp B/P (MAP) Pulse Ox O2 Delivery O2 Flow Rate FiO2 09/16/20 05:37 16 Room Air 09/16/20 02:00 97.5 89 117/67 (84) 96 I&O- Last 24 Hours up to 6 AM 09/16/20 06:00 Intake Total 350 ml Output Total 875 ml Balance -525 ml Laboratory Data Labs 24H Laboratory Tests 2 09/15/20 08:12: Nucleated Red Blood Cells % (auto) 0.0 CBC/BMP Laboratory Tests 09/15/20 08:12 Discharge Medications Scheduled Ferrous Sulfate (Ferrous Sulfate) 325 Mg Tablet.dr, 325 MG PO DAILY, (Reported) Pnv No.95/Ferrous Fum/Folic AC ( Tablet) 1 Tab Tab, 1 TAB PO DAILY, (Reported) Vitamin D (Vitamin D3) 10 Mcg Tablet, 400 MCG PO DAILY, (Reported) Scheduled PRN Ibuprofen (Ibuprofen) 800 Mg Tablet, 800 MG PO Q8HP PRN for PAIN Oxycodone/Acetaminophen (Oxycodone-Acetaminophen 5-325) 1 Each Tablet, 1 TAB PO Q6H PRN for SEVERE PAIN (PS 8-10) Allergies Coded Allergies: poliomyelitis vaccine, live oral (Verified Allergy, Severe, rash/swelling, 10/18/19) SEVERE SWELLING LEG,COULD NOT WALK,LEG BECAME RED AND HOT TO TOUCH strawberry (Verified Allergy, Intermediate, lip swelling, 10/18/19) SWOLLEN LIP AND PT STATES SHE TURNS RED Hotdogs (Verified Allergy, Unknown, 09/14/20) USHA HERNANDEZ MD. Sep 16, 2020 06:12
[2020-09-16] MEDS: PRENATAL VITAMINS CHEWABLE TABLET PO SCH (08:02)
[2020-09-16 10:00] VITALS: BP 112/68
== END 2020-09-16 13:20 | disposition home or self-care (01) | DRG 785 ==
LOC: M LDI 06:05 → M OBS 10:28
PROVIDERS: ADMIT Specialist; ATTEND Specialist
PROC: 0UB70ZZ Excision of Bilateral Fallopian Tubes, Open Approach (ICD-10-PCS; 2020-09-14)
PROC: 10D00Z1 Extraction of Products of Conception, Low, Open Approach (ICD-10-PCS; principal; 2020-09-14 07:30)
DX: O34.211 Maternal care for low transverse scar from previous cesarean delivery (principal); Z37.0 Single live birth; Z3A.37 37 weeks gestation of pregnancy; Z30.2 Encounter for sterilization; Z91.018 Allergy to other foods; Z88.7 Allergy status to serum and vaccine